=== PATIENT | male | born 1970 | race Asian ===

== ENCOUNTER 2018-03-09 10:16 | Inpatient (IN) | payer OTHER ==
[~2018-03-09] VITALS: Ht 167.6 cm; Wt 110.5 kg
[2018-03-09] MEDS ORDERED: SODIUM CHLORIDE 0.9% 1,000 ML IV ONE (12:00)
[2018-03-09] MEDS ORDERED: VANCOMYCIN HCL 1.5 GM in DEXTROSE 5%-WATER 250 ML IV ONE (12:00)
[2018-03-09 12:23] LABS: BASOPHILS % (AUTO) 0.7 % (0.0-2.0); EOSINOPHILS % (AUTO) 0.9 % (1.0-6.0); HEMATOCRIT 47.7 % (41-53); HEMOGLOBIN 16.2 g/dL (13.5-17.5); LYMPHOCYTES # (AUTO) 1.2 K/uL (1.0-4.8); LYMPHOCYTES % (AUTO) 7.5 % (22.0-44.0); MEAN CORPUSCULAR VOLUME 85 fL (80-100); MONOCYTES # (AUTO) 1.2 K/uL (0.1-1.0); MONOCYTES % (AUTO) 7.4 % (2.0-9.0); NEUTROPHILS # (AUTO) 13.7 K/uL (1.8-7.7); NEUTROPHILS % (AUTO) 83.5 % (40.0-70.0); PLATELET COUNT (AUTO) 266 K/uL (150-450); RED CELL DISTRIBUTION WIDTH 13.5 % (11.5-14.5)
[2018-03-09] MEDS ORDERED: ACETAMINOPHEN 325 MG TABLET PO ONE (12:30)
[2018-03-09] MEDS: PIPERACILLIN/TAZO 3.375 GM/D5W 50 ML IV SCH ×2 (12:31→17:57)
[2018-03-09 12:32] LABS: INR 1.1 (0.9-1.1)
[2018-03-09 12:33] LABS: ANION GAP 10 mmol/L (8-16); CALCIUM, TOTAL 8.7 mg/dL (8.8-10.5); CARBON DIOXIDE 27 mmol/L (22-29); CHLORIDE 99 mmol/L (98-107); CREATININE 1.02 mg/dL (0.60-1.30); GLOMERULAR FILTR. RATE CALC > 60 mL/min (>60); GLUCOSE,RANDOM 166 mg/dL (70-110); POTASSIUM 3.8 mmol/L (3.5-5.1); SODIUM SERUM 136 mmol/L (136-145); UREA NITROGEN, BLOOD 13 mg/dL (7-18)
[2018-03-09 12:39] LABS: ALANINE AMINOTRANSFERASE 37 U/L (12-78); ALBUMIN 3.1 g/dL (3.4-5.0); ALKALINE PHOSPHATASE 81 U/L (46-116); ASPARTATE AMINOTRANSFERASE 24 U/L (15-37); BILIRUBIN,TOTAL 0.9 mg/dL (0.1-1.0); LIPASE 81 U/L (73-393); TOTAL PROTEIN, SERUM 8.2 g/dL (6.4-8.2)
[2018-03-09 12:41] LABS: LACTIC ACID 1.3 mmol/L (0.4-2.0)
[2018-03-09] MEDS ORDERED: IOVERSOL 350 MG/ML 150 ML VIAL ONE (13:39)
[2018-03-09] MEDS ORDERED: KETOROLAC TROMETHAMINE 30 MG/ML VIAL IVP ONE (16:15)
[2018-03-09 16:23] LABS: APPEARANCE,URINE CLEAR (CLEAR); BILIRUBIN,URINE NEGATIVE (NEGATIVE); GLUCOSE, URINE (UA) NEGATIVE (NEGATIVE); KETONES,URINE NEGATIVE (NEGATIVE); LEUKOCYTE ESTERASE ,URINE NEGATIVE (NEGATIVE); NITRATE,URINE NEGATIVE (NEGATIVE); OCCULT BLOOD,URINE NEGATIVE (NEGATIVE); PROTEIN,URINE NEGATIVE (NEGATIVE)
[2018-03-09 16:25] LABS: BACTERIA,URINE None Seen /HPF (None Seen)
[2018-03-09 16:34] LABS: RBC,URINE None Seen /HPF (0-2); SQUAMOUS EPITHELIAL CELL,UR Rare /LPF (None Seen); WBC,URINE None Seen /HPF (0-5)
[2018-03-09] MEDS ORDERED: 0.9% SODIUM CHLORIDE 10 ML SYRINGE IVP PRN (17:15)
[2018-03-09] MEDS ORDERED: ONDANSETRON HCL 4 MG/2 ML VIAL IVP PRN ×2 (17:15→22:15)
[2018-03-09] MEDS ORDERED: ACETAMINOPHEN 325 MG TABLET PO PRN (17:15)
[2018-03-09] MEDS ORDERED: VANCOMYCIN HCL 1.5 GM in DEXTROSE 5%-WATER 250 ML IV SCH (18:00)
[2018-03-09 18:54] VITALS: BP 154/103
[2018-03-09 20:12] VITALS: BP 147/94
[2018-03-09] MEDS ORDERED: ZOLPIDEM TARTRATE 5 MG TABLET PO PRN (22:15)
[2018-03-09] MEDS ORDERED: BISACODYL 10 MG RECTAL RECTAL SUPPOSITORY PR PRN (22:15)
[2018-03-09] MEDS ORDERED: MAGNESIUM HYDROXIDE SUSPENSION 30 ML UDCUP PO PRN (22:15)
[2018-03-09 23:30] VITALS: BP 174/95
[2018-03-09] MEDS ORDERED: SODIUM CHLORIDE 0.9% 250 ML IV ONE (23:42)
[2018-03-10] MEDS ORDERED: PIPERACILLIN/TAZO 3.375 GM/D5W 50 ML IV SCH
[2018-03-10] MEDS: VANCOMYCIN HCL 1.25 GM in DEXTROSE 5%-WATER 250 ML IV SCH ×4 (00:19→23:31)
[2018-03-10] MEDS: HEPARIN SODIUM,PORCINE 5,000 UNITS/ML VIAL SQ SCH ×4 (00:22→23:31)
[2018-03-10 03:45] VITALS: BP 157/98
[2018-03-10 05:55] LABS: BASOPHILS % (AUTO) 0.6 % (0.0-2.0); EOSINOPHILS % (AUTO) 2.7 % (1.0-6.0); HEMATOCRIT 42.1 % (41-53); HEMOGLOBIN 14.4 g/dL (13.5-17.5); LYMPHOCYTES % (AUTO) 7.2 % (22.0-44.0); MEAN CORPUSCULAR HEMOGLOBIN 29.3 pg (26.0-34.0); MEAN CORPUSCULAR HGB CONC 34.3 G/dL (31.0-37.0); MEAN CORPUSCULAR VOLUME 85 fL (80-100); MONOCYTES # (AUTO) 1.4 K/uL (0.1-1.0); MONOCYTES % (AUTO) 9.5 % (2.0-9.0); NEUTROPHILS # (AUTO) 11.5 K/uL (1.8-7.7); PLATELET COUNT (AUTO) 226 K/uL (150-450); RED BLOOD CELL COUNT(AUTO) 4.93 MIL/uL (4.50-5.90); RED CELL DISTRIBUTION WIDTH 13.4 % (11.5-14.5)
[2018-03-10 06:21] LABS: ANION GAP 6 mmol/L (8-16); CALCIUM, TOTAL 8.4 mg/dL (8.8-10.5); CARBON DIOXIDE 29 mmol/L (22-29); CHLORIDE 102 mmol/L (98-107); CREATININE 0.96 mg/dL (0.60-1.30); GLOMERULAR FILTR. RATE CALC > 60 mL/min (>60); GLUCOSE,RANDOM 119 mg/dL (70-110); POTASSIUM 3.9 mmol/L (3.5-5.1); SODIUM SERUM 137 mmol/L (136-145); UREA NITROGEN, BLOOD 12 mg/dL (7-18)
[2018-03-10 07:48] VITALS: BP 162/102
[2018-03-10] MEDS: PANTOPRAZOLE SODIUM 40 MG DR TABLET PO SCH (07:54)
[2018-03-10] MEDS: DOCUSATE SODIUM 100 MG CAPSULE PO SCH ×2 (07:54→19:58)
[2018-03-10 11:50] VITALS: BP 140/114
[2018-03-10] MEDS: HYDROCODONE/ACETAMINOPHEN 5-325 MG TABLET PO PRN ×3 (11:54→23:31)
[2018-03-10 15:54] VITALS: BP 149/111
[2018-03-10 19:29] VITALS: BP 157/99
[2018-03-10 23:48] VITALS: BP 179/119
[2018-03-11] VITALS (7 sets, daily range): BP systolic 158–189; BP diastolic 106–120
[2018-03-11] MEDS: HydrALAZINE HCL 50 MG TABLET PO PRN ×5 (00:24→23:44)
[2018-03-11] MEDS: HYDROCODONE/ACETAMINOPHEN 5-325 MG TABLET PO PRN ×4 (05:32→20:21)
[2018-03-11 06:51] LABS: BASOPHILS % (AUTO) 0.6 % (0.0-2.0); EOSINOPHILS % (AUTO) 2.8 % (1.0-6.0); HEMATOCRIT 42.5 % (41-53); HEMOGLOBIN 14.8 g/dL (13.5-17.5); LYMPHOCYTES # (AUTO) 1.4 K/uL (1.0-4.8); LYMPHOCYTES % (AUTO) 10.9 % (22.0-44.0); MEAN CORPUSCULAR HEMOGLOBIN 29.7 pg (26.0-34.0); MEAN CORPUSCULAR VOLUME 85 fL (80-100); MONOCYTES # (AUTO) 1.4 K/uL (0.1-1.0); MONOCYTES % (AUTO) 10.9 % (2.0-9.0); NEUTROPHILS # (AUTO) 9.5 K/uL (1.8-7.7); NEUTROPHILS % (AUTO) 74.8 % (40.0-70.0); PLATELET COUNT (AUTO) 215 K/uL (150-450); RED BLOOD CELL COUNT(AUTO) 4.99 MIL/uL (4.50-5.90); RED CELL DISTRIBUTION WIDTH 13.4 % (11.5-14.5)
[2018-03-11 07:33] LABS: ANION GAP 6 mmol/L (8-16); CALCIUM, TOTAL 8.1 mg/dL (8.8-10.5); CARBON DIOXIDE 30 mmol/L (22-29); CHLORIDE 101 mmol/L (98-107); CREATININE 0.99 mg/dL (0.60-1.30); GLOMERULAR FILTR. RATE CALC > 60 mL/min (>60); GLUCOSE,RANDOM 96 mg/dL (70-110); POTASSIUM 4.1 mmol/L (3.5-5.1); SODIUM SERUM 137 mmol/L (136-145); UREA NITROGEN, BLOOD 13 mg/dL (7-18); VANCOMYCIN,RANDOM 27.2 mcg/mL (25.0-50.0)
[2018-03-11] MEDS: HEPARIN SODIUM,PORCINE 5,000 UNITS/ML VIAL SQ SCH ×3 (07:51→23:47)
[2018-03-11] MEDS: VANCOMYCIN HCL 1.25 GM in DEXTROSE 5%-WATER 250 ML IV SCH ×3 (07:51→23:45)
[2018-03-11] MEDS: MULTIVITAMINS, THERAPEUTIC TABLET PO SCH (07:52)
[2018-03-11] MEDS: PANTOPRAZOLE SODIUM 40 MG DR TABLET PO SCH (07:52)
[2018-03-11] MEDS: DOCUSATE SODIUM 100 MG CAPSULE PO SCH ×2 (07:52→20:21)
[2018-03-11] MEDS: MORPHINE SULFATE 4 MG/ML SYRINGE IVP PRN ×4 (07:56→23:44)
[2018-03-11] MEDS: AmLODIPine BESYLATE 10 MG TABLET PO SCH (17:06)
[2018-03-12] MEDS ORDERED: CloNIDine HCL 0.1 MG TABLET PO ONE
[2018-03-12 00:45] VITALS: BP 178/114
[2018-03-12 04:15] VITALS: BP 162/105
[2018-03-12] MEDS: HYDROCODONE/ACETAMINOPHEN 5-325 MG TABLET PO PRN (04:38)
[2018-03-12] MEDS: HydrALAZINE HCL 50 MG TABLET PO PRN ×3 (04:38→23:24)
[2018-03-12] MEDS ORDERED: SODIUM CHLORIDE 0.9% 250 ML IV ONE (05:08)
[2018-03-12 07:39] VITALS: BP 159/94
[2018-03-12 07:55] LABS: BASOPHILS % (AUTO) 0.7 % (0.0-2.0); HEMATOCRIT 43.7 % (41-53); HEMOGLOBIN 15.1 g/dL (13.5-17.5); LYMPHOCYTES # (AUTO) 1.1 K/uL (1.0-4.8); LYMPHOCYTES % (AUTO) 8.3 % (22.0-44.0); MEAN CORPUSCULAR HEMOGLOBIN 29.9 pg (26.0-34.0); MEAN CORPUSCULAR HGB CONC 34.6 G/dL (31.0-37.0); MEAN CORPUSCULAR VOLUME 86 fL (80-100); MONOCYTES # (AUTO) 1.8 K/uL (0.1-1.0); MONOCYTES % (AUTO) 13.7 % (2.0-9.0); NEUTROPHILS # (AUTO) 9.7 K/uL (1.8-7.7); NEUTROPHILS % (AUTO) 73.3 % (40.0-70.0); PLATELET COUNT (AUTO) 252 K/uL (150-450); RED BLOOD CELL COUNT(AUTO) 5.06 MIL/uL (4.50-5.90); RED CELL DISTRIBUTION WIDTH 13.6 % (11.5-14.5)
[2018-03-12] MEDS: AmLODIPine BESYLATE 10 MG TABLET PO SCH (07:57)
[2018-03-12] MEDS: CHLORHEXIDINE GLUCONATE 4% 118 ML TOPICAL LIQUID TP SCH (07:57)
[2018-03-12] MEDS: MULTIVITAMINS, THERAPEUTIC TABLET PO SCH (07:57)
[2018-03-12] MEDS: DOCUSATE SODIUM 100 MG CAPSULE PO SCH ×2 (07:57→20:09)
[2018-03-12] MEDS: VANCOMYCIN HCL 1.25 GM in DEXTROSE 5%-WATER 250 ML IV SCH (07:57)
[2018-03-12] MEDS: PANTOPRAZOLE SODIUM 40 MG DR TABLET PO SCH (07:57)
[2018-03-12] MEDS: HEPARIN SODIUM,PORCINE 5,000 UNITS/ML VIAL SQ SCH ×3 (07:58→23:25)
[2018-03-12 08:02] LABS: ANION GAP 7 mmol/L (8-16); CALCIUM, TOTAL 8.4 mg/dL (8.8-10.5); CARBON DIOXIDE 30 mmol/L (22-29); CHLORIDE 101 mmol/L (98-107); CREATININE 0.94 mg/dL (0.60-1.30); GLOMERULAR FILTR. RATE CALC > 60 mL/min (>60); GLUCOSE,RANDOM 131 mg/dL (70-110); POTASSIUM 3.5 mmol/L (3.5-5.1); SODIUM SERUM 138 mmol/L (136-145); UREA NITROGEN, BLOOD 13 mg/dL (7-18)
[2018-03-12] MEDS ORDERED: POTASSIUM CHLORIDE 20 MEQ ER TABLET PO ONE (08:30)
[2018-03-12 11:31] VITALS: BP 158/81
[2018-03-12] MEDS: MORPHINE SULFATE 4 MG/ML SYRINGE IVP PRN (14:43)
[2018-03-12 15:24] VITALS: BP 154/103
[2018-03-12 22:43] VITALS: BP 158/96
[2018-03-12] MEDS: VANCOMYCIN HCL 1 GM/D5% WATER 200 ML IV SCH (23:24)
[2018-03-13 04:37] VITALS: BP 158/106
[2018-03-13] MEDS: CloNIDine HCL 0.1 MG TABLET PO PRN (05:30)
[2018-03-13] MEDS: HYDROCODONE/ACETAMINOPHEN 5-325 MG TABLET PO PRN (05:33)
[2018-03-13 06:35] LABS: BASOPHILS % (AUTO) 0.8 % (0.0-2.0); EOSINOPHILS % (AUTO) 4.1 % (1.0-6.0); HEMATOCRIT 43.5 % (41-53); HEMOGLOBIN 15.4 g/dL (13.5-17.5); LYMPHOCYTES # (AUTO) 1.2 K/uL (1.0-4.8); LYMPHOCYTES % (AUTO) 10.6 % (22.0-44.0); MEAN CORPUSCULAR HEMOGLOBIN 30.3 pg (26.0-34.0); MEAN CORPUSCULAR HGB CONC 35.4 G/dL (31.0-37.0); MEAN CORPUSCULAR VOLUME 86 fL (80-100); MONOCYTES # (AUTO) 1.3 K/uL (0.1-1.0); MONOCYTES % (AUTO) 12.2 % (2.0-9.0); NEUTROPHILS # (AUTO) 7.9 K/uL (1.8-7.7); NEUTROPHILS % (AUTO) 72.3 % (40.0-70.0); PLATELET COUNT (AUTO) 284 K/uL (150-450); RED BLOOD CELL COUNT(AUTO) 5.08 MIL/uL (4.50-5.90); RED CELL DISTRIBUTION WIDTH 13.7 % (11.5-14.5)
[2018-03-13 06:41] LABS: ANION GAP 6 mmol/L (8-16); CALCIUM, TOTAL 8.6 mg/dL (8.8-10.5); CARBON DIOXIDE 31 mmol/L (22-29); CHLORIDE 100 mmol/L (98-107); CREATININE 0.95 mg/dL (0.60-1.30); GLOMERULAR FILTR. RATE CALC > 60 mL/min (>60); GLUCOSE,RANDOM 104 mg/dL (70-110); POTASSIUM 3.8 mmol/L (3.5-5.1); SODIUM SERUM 137 mmol/L (136-145); UREA NITROGEN, BLOOD 12 mg/dL (7-18)
[2018-03-13 07:20] VITALS: BP 153/103
[2018-03-13] MEDS: HEPARIN SODIUM,PORCINE 5,000 UNITS/ML VIAL SQ SCH ×3 (08:00→23:32)
[2018-03-13] MEDS ORDERED: RINGERS SOLUTION,LACTATED 1,000 ML IV ONE (08:45)
[2018-03-13] MEDS: AmLODIPine BESYLATE 10 MG TABLET PO SCH (08:49)
[2018-03-13] MEDS: CHLORHEXIDINE GLUCONATE 4% 118 ML TOPICAL LIQUID TP SCH (09:00)
[2018-03-13] MEDS ORDERED: ACETAMINOPHEN 1000 MG/ISO-OSM 100 ML IV ONE (09:28)
[2018-03-13] MEDS ORDERED: SODIUM CL IRRIG SOLN BAG 3,000 ML IRRIG ONE (09:38)
[2018-03-13] MEDS ORDERED: DEXAMETHASONE SOD PHOS 4 MG/ML VIAL ONE (09:41)
[2018-03-13] MEDS ORDERED: LIDOCAINE/PF 2% 5 ML VIAL ONE (09:41)
[2018-03-13] MEDS ORDERED: MEPERIDINE-PF 25 MG/ML VIAL IVP PRN (10:15)
[2018-03-13] MEDS ORDERED: FentaNYL CITRATE-PF 100 MCG/2 ML VIAL IVP PRN (10:15)
[2018-03-13] MEDS ORDERED: HYDROmorphone 2 MG/ML SYRINGE IVP PRN ×2 (10:15)
[2018-03-13] MEDS ORDERED: KETAMINE HCL 50 MG/ML 10 ML VIAL ONE (10:19)
[2018-03-13 11:00] VITALS: BP 141/90
[2018-03-13] MEDS: DOCUSATE SODIUM 100 MG CAPSULE PO SCH ×2 (11:40→20:28)
[2018-03-13] MEDS: MULTIVITAMINS, THERAPEUTIC TABLET PO SCH (11:40)
[2018-03-13] MEDS: VANCOMYCIN HCL 1 GM/D5% WATER 200 ML IV SCH ×3 (11:41→23:32)
[2018-03-13] MEDS ORDERED: ONDANSETRON HCL 4 MG/2 ML VIAL IVP ONE (12:00)
[2018-03-13] MEDS ORDERED: LIDOCAINE/PF 2% 5 ML VIAL INJ ONE (12:00)
[2018-03-13] MEDS ORDERED: KETOROLAC TROMETHAMINE 60 MG/2 ML VIAL IM ONE (12:00)
[2018-03-13] MEDS ORDERED: PROPOFOL 1% 20 ML VIAL IVP ONE (12:00)
[2018-03-13] MEDS ORDERED: MIDAZOLAM HCL 2 MG/2 ML VIAL IVP ONE (12:00)
[2018-03-13] MEDS: PANTOPRAZOLE SODIUM 40 MG DR TABLET PO SCH (12:06)
[2018-03-13] MEDS ORDERED: SODIUM CHLORIDE 0.9% 500 ML IV ONE (14:26)
[2018-03-13 15:30] VITALS: BP 129/81
[2018-03-13] MEDS: KETOROLAC TROMETHAMINE 15 MG/ML VIAL IVP SCH ×2 (17:30→23:32)
[2018-03-13] MEDS: ACETAMINOPHEN 500 MG TABLET PO SCH ×2 (17:32→23:32)
[2018-03-13 20:18] VITALS: BP 144/92
[2018-03-14] VITALS (7 sets, daily range): BP systolic 134–155; BP diastolic 73–107
[2018-03-14] MEDS: KETOROLAC TROMETHAMINE 15 MG/ML VIAL IVP SCH ×4 (05:44→23:37)
[2018-03-14] MEDS: ACETAMINOPHEN 500 MG TABLET PO SCH ×4 (05:45→23:37)
[2018-03-14 06:46] LABS: BASOPHILS % (AUTO) 0.3 % (0.0-2.0); EOSINOPHILS % (AUTO) 0 % (1.0-6.0); HEMATOCRIT 41.7 % (41-53); HEMOGLOBIN 14.3 g/dL (13.5-17.5); LYMPHOCYTES # (AUTO) 0.8 K/uL (1.0-4.8); LYMPHOCYTES % (AUTO) 5.5 % (22.0-44.0); MEAN CORPUSCULAR HEMOGLOBIN 29.3 pg (26.0-34.0); MEAN CORPUSCULAR HGB CONC 34.2 G/dL (31.0-37.0); MEAN CORPUSCULAR VOLUME 86 fL (80-100); MONOCYTES # (AUTO) 0.9 K/uL (0.1-1.0); MONOCYTES % (AUTO) 5.9 % (2.0-9.0); NEUTROPHILS # (AUTO) 12.9 K/uL (1.8-7.7); PLATELET COUNT (AUTO) 320 K/uL (150-450); RED BLOOD CELL COUNT(AUTO) 4.86 MIL/uL (4.50-5.90); RED CELL DISTRIBUTION WIDTH 13.3 % (11.5-14.5)
[2018-03-14 06:56] LABS: NEUTROPHILS % (AUTO) 88.3 % (40.0-70.0)
[2018-03-14 07:01] LABS: ANION GAP 8 mmol/L (8-16); CALCIUM, TOTAL 8.4 mg/dL (8.8-10.5); CARBON DIOXIDE 27 mmol/L (22-29); CHLORIDE 101 mmol/L (98-107); CREATININE 1.07 mg/dL (0.60-1.30); GLOMERULAR FILTR. RATE CALC > 60 mL/min (>60); GLUCOSE,RANDOM 124 mg/dL (70-110); POTASSIUM 4.4 mmol/L (3.5-5.1); SODIUM SERUM 136 mmol/L (136-145); UREA NITROGEN, BLOOD 21 mg/dL (7-18); VANCOMYCIN,RANDOM 22.9 mcg/mL (25.0-50.0)
[2018-03-14] MEDS: HEPARIN SODIUM,PORCINE 5,000 UNITS/ML VIAL SQ SCH ×3 (08:34→23:37)
[2018-03-14] MEDS: VANCOMYCIN HCL 1 GM/D5% WATER 200 ML IV SCH ×3 (08:34→23:37)
[2018-03-14] MEDS: MULTIVITAMINS, THERAPEUTIC TABLET PO SCH (08:34)
[2018-03-14] MEDS: AmLODIPine BESYLATE 10 MG TABLET PO SCH (08:35)
[2018-03-14] MEDS: PANTOPRAZOLE SODIUM 40 MG DR TABLET PO SCH (08:35)
[2018-03-14] MEDS: DOCUSATE SODIUM 100 MG CAPSULE PO SCH ×2 (08:35→20:40)
[2018-03-14] MEDS: CHLORHEXIDINE GLUCONATE 4% 118 ML TOPICAL LIQUID TP SCH (08:35)
[2018-03-14] MEDS ORDERED: SODIUM CHLORIDE 0.9% 500 ML IV ONE (13:37)
[2018-03-14] MEDS: CloNIDine HCL 0.1 MG TABLET PO PRN (20:40)
[2018-03-15 04:00] VITALS: BP 155/96
[2018-03-15] MEDS: KETOROLAC TROMETHAMINE 15 MG/ML VIAL IVP SCH ×3 (05:27→18:50)
[2018-03-15 06:08] LABS: BASOPHILS % (AUTO) 1.2 % (0.0-2.0); EOSINOPHILS % (AUTO) 2.4 % (1.0-6.0); HEMATOCRIT 42.7 % (41-53); HEMOGLOBIN 14.1 g/dL (13.5-17.5); LYMPHOCYTES # (AUTO) 1.8 K/uL (1.0-4.8); LYMPHOCYTES % (AUTO) 16.2 % (22.0-44.0); MEAN CORPUSCULAR HEMOGLOBIN 28.6 pg (26.0-34.0); MEAN CORPUSCULAR HGB CONC 33.1 G/dL (31.0-37.0); MEAN CORPUSCULAR VOLUME 86 fL (80-100); MONOCYTES # (AUTO) 1.1 K/uL (0.1-1.0); NEUTROPHILS # (AUTO) 7.9 K/uL (1.8-7.7); NEUTROPHILS % (AUTO) 70.2 % (40.0-70.0); PLATELET COUNT (AUTO) 337 K/uL (150-450); RED BLOOD CELL COUNT(AUTO) 4.94 MIL/uL (4.50-5.90); RED CELL DISTRIBUTION WIDTH 13.7 % (11.5-14.5)
[2018-03-15] MEDS: ACETAMINOPHEN 500 MG TABLET PO SCH ×3 (06:21→18:51)
[2018-03-15 06:30] LABS: ANION GAP 6 mmol/L (8-16); CALCIUM, TOTAL 8.1 mg/dL (8.8-10.5); CARBON DIOXIDE 29 mmol/L (22-29); CHLORIDE 103 mmol/L (98-107); CREATININE 0.95 mg/dL (0.60-1.30); GLOMERULAR FILTR. RATE CALC > 60 mL/min (>60); GLUCOSE,RANDOM 105 mg/dL (70-110); POTASSIUM 4.1 mmol/L (3.5-5.1); SODIUM SERUM 138 mmol/L (136-145); UREA NITROGEN, BLOOD 19 mg/dL (7-18); VANCOMYCIN,RANDOM 22.7 mcg/mL (25.0-50.0)
[2018-03-15 07:25] VITALS: BP 151/102
[2018-03-15] MEDS: VANCOMYCIN HCL 1 GM/D5% WATER 200 ML IV SCH ×2 (07:56→17:21)
[2018-03-15] MEDS: AmLODIPine BESYLATE 10 MG TABLET PO SCH (07:56)
[2018-03-15] MEDS: PANTOPRAZOLE SODIUM 40 MG DR TABLET PO SCH (07:56)
[2018-03-15] MEDS: DOCUSATE SODIUM 100 MG CAPSULE PO SCH ×2 (07:56→21:00)
[2018-03-15] MEDS: MULTIVITAMINS, THERAPEUTIC TABLET PO SCH (07:56)
[2018-03-15] MEDS: HEPARIN SODIUM,PORCINE 5,000 UNITS/ML VIAL SQ SCH ×2 (07:56→17:20)
[2018-03-15] MEDS: CHLORHEXIDINE GLUCONATE 4% 118 ML TOPICAL LIQUID TP SCH (09:00)
[2018-03-15] MEDS: ACETAMINOPHEN 325 MG TABLET PO PRN ×2 (12:41→12:44)
[2018-03-15 13:49] VITALS: BP 153/83
[2018-03-15 15:20] VITALS: BP 151/99
[2018-03-15 20:01] VITALS: BP 148/95
[2018-03-16] VITALS (8 sets, daily range): BP systolic 144–164; BP diastolic 87–110
[2018-03-16] MEDS: VANCOMYCIN HCL 1 GM/D5% WATER 200 ML IV SCH ×4 (00:40→23:37)
[2018-03-16] MEDS: KETOROLAC TROMETHAMINE 15 MG/ML VIAL IVP SCH ×2 (00:41→05:27)
[2018-03-16] MEDS: HEPARIN SODIUM,PORCINE 5,000 UNITS/ML VIAL SQ SCH ×4 (00:42→23:38)
[2018-03-16] MEDS: ACETAMINOPHEN 500 MG TABLET PO SCH ×2 (00:42→06:23)
[2018-03-16 06:20] LABS: ANION GAP 8 mmol/L (8-16); CALCIUM, TOTAL 8.5 mg/dL (8.8-10.5); CARBON DIOXIDE 29 mmol/L (22-29); CHLORIDE 102 mmol/L (98-107); CREATININE 0.91 mg/dL (0.60-1.30); GLOMERULAR FILTR. RATE CALC > 60 mL/min (>60); GLUCOSE,RANDOM 99 mg/dL (70-110); POTASSIUM 3.9 mmol/L (3.5-5.1); SODIUM SERUM 139 mmol/L (136-145); UREA NITROGEN, BLOOD 18 mg/dL (7-18)
[2018-03-16] MEDS: HydrALAZINE HCL 50 MG TABLET PO PRN ×2 (06:22→18:19)
[2018-03-16] MEDS: MULTIVITAMINS, THERAPEUTIC TABLET PO SCH (07:54)
[2018-03-16] MEDS: PANTOPRAZOLE SODIUM 40 MG DR TABLET PO SCH (07:54)
[2018-03-16] MEDS: AmLODIPine BESYLATE 10 MG TABLET PO SCH (07:54)
[2018-03-16] MEDS: DOCUSATE SODIUM 100 MG CAPSULE PO SCH ×2 (07:58→20:04)
[2018-03-16] MEDS: CHLORHEXIDINE GLUCONATE 4% 118 ML TOPICAL LIQUID TP SCH (08:02)
[2018-03-16] MEDS: CloNIDine HCL 0.1 MG TABLET PO PRN (11:53)
[2018-03-16] MEDS: HYDROmorphone 2 MG/ML SYRINGE IVP PRN (18:21)
[2018-03-17] MEDS: OxyCODONE HCL/ACETAMINOPHEN 10-325 MG TABLET PO PRN ×3 (06:13→19:59)
[2018-03-17] MEDS: VANCOMYCIN HCL 1 GM/D5% WATER 200 ML IV SCH ×2 (07:54→16:09)
[2018-03-17] MEDS: PANTOPRAZOLE SODIUM 40 MG DR TABLET PO SCH (07:55)
[2018-03-17] MEDS: DOCUSATE SODIUM 100 MG CAPSULE PO SCH ×2 (07:55→19:58)
[2018-03-17] MEDS: HEPARIN SODIUM,PORCINE 5,000 UNITS/ML VIAL SQ SCH ×2 (07:55→16:08)
[2018-03-17] MEDS: AmLODIPine BESYLATE 10 MG TABLET PO SCH (07:55)
[2018-03-17] MEDS: MULTIVITAMINS, THERAPEUTIC TABLET PO SCH (07:55)
[2018-03-17 08:03] VITALS: BP 146/97
[2018-03-17 08:48] LABS: ANION GAP 6 mmol/L (8-16); CALCIUM, TOTAL 8.4 mg/dL (8.8-10.5); CARBON DIOXIDE 29 mmol/L (22-29); CHLORIDE 101 mmol/L (98-107); CREATININE 1.02 mg/dL (0.60-1.30); GLOMERULAR FILTR. RATE CALC > 60 mL/min (>60); GLUCOSE,RANDOM 191 mg/dL (70-110); SODIUM SERUM 136 mmol/L (136-145); UREA NITROGEN, BLOOD 19 mg/dL (7-18)
[2018-03-17] MEDS: CHLORHEXIDINE GLUCONATE 4% 118 ML TOPICAL LIQUID TP SCH (09:00)
[2018-03-17 12:00] VITALS: BP 142/90
[2018-03-17] MEDS: HYDROmorphone 2 MG/ML SYRINGE IVP PRN (14:19)
[2018-03-17] MEDS ORDERED: AMLO-512 PO (14:33)
[2018-03-17] MEDS ORDERED: SULF1TAB42 PO (14:33)
[2018-03-17 16:20] VITALS: BP 145/95
[2018-03-17 19:19] VITALS: BP_SYST 120; BP_SYST 134; BP_DIAS 76; BP_DIAS 93
[2018-03-17 23:30] VITALS: BP 141/89
[2018-03-18] MEDS: HEPARIN SODIUM,PORCINE 5,000 UNITS/ML VIAL SQ SCH ×3 (00:31→16:48)
[2018-03-18] MEDS: VANCOMYCIN HCL 1 GM/D5% WATER 200 ML IV SCH ×3 (00:31→16:48)
[2018-03-18 05:06] VITALS: BP 155/96
[2018-03-18 06:30] LABS: ANION GAP 7 mmol/L (8-16); CALCIUM, TOTAL 8.3 mg/dL (8.8-10.5); CARBON DIOXIDE 29 mmol/L (22-29); CHLORIDE 101 mmol/L (98-107); CREATININE 0.83 mg/dL (0.60-1.30); GLOMERULAR FILTR. RATE CALC > 60 mL/min (>60); GLUCOSE,RANDOM 97 mg/dL (70-110); POTASSIUM 3.8 mmol/L (3.5-5.1); SODIUM SERUM 137 mmol/L (136-145); UREA NITROGEN, BLOOD 18 mg/dL (7-18); VANCOMYCIN,RANDOM 31.4 mcg/mL (25.0-50.0)
[2018-03-18 07:36] VITALS: BP 155/107
[2018-03-18] MEDS: MULTIVITAMINS, THERAPEUTIC TABLET PO SCH (08:48)
[2018-03-18] MEDS: DOCUSATE SODIUM 100 MG CAPSULE PO SCH (08:48)
[2018-03-18] MEDS: AmLODIPine BESYLATE 10 MG TABLET PO SCH (08:48)
[2018-03-18] MEDS: PANTOPRAZOLE SODIUM 40 MG DR TABLET PO SCH (08:48)
[2018-03-18] MEDS: OxyCODONE HCL/ACETAMINOPHEN 10-325 MG TABLET PO PRN (08:57)
[2018-03-18] MEDS: CHLORHEXIDINE GLUCONATE 4% 118 ML TOPICAL LIQUID TP SCH (09:00)
[2018-03-18 11:15] VITALS: BP 148/87
[2018-03-18] MEDS ORDERED: SODIUM CHLORIDE 0.9% 250 ML IV ONE (12:25)
[2018-03-18 15:30] VITALS: BP 146/94
== END 2018-03-18 20:05 | disposition home or self-care (01) | DRG 720 ==
LOC: EMS 10:18 → 6N 17:29
PROVIDERS: ADMIT Internal Medicine; ATTEND Internal Medicine
PROC: 0JB80ZZ Excision of Abdomen Subcutaneous Tissue and Fascia, Open Approach (ICD-10-PCS; principal; 2018-03-13 09:00)
DX: A41.9 Sepsis, unspecified organism (principal); I96 Gangrene, not elsewhere classified; I31.3 Pericardial effusion (noninflammatory); E44.0 Moderate protein-calorie malnutrition; L02.211 Cutaneous abscess of abdominal wall; E66.01 Morbid (severe) obesity due to excess calories; K76.0 Fatty (change of) liver, not elsewhere classified; L03.311 Cellulitis of abdominal wall; F17.200 Nicotine dependence, unspecified, uncomplicated; I10 Essential (primary) hypertension; Z68.39 Body mass index [BMI] 39.0-39.9, adult; I25.10 Atherosclerotic heart disease of native coronary artery without angina pectoris; Z91.19 Patient's noncompliance with other medical treatment and regimen; T14.8XXA Other injury of unspecified body region, initial encounter; W57.XXXA Bitten or stung by nonvenomous insect and other nonvenomous arthropods, initial encounter; Y93.89 Activity, other specified; Y92.89 Other specified places as the place of occurrence of the external cause; Y99.8 Other external cause status; Z28.21 Immunization not carried out because of patient refusal
CPT/HCPCS: 74177; 83605; 87040; 87070; 87081; 88304; 96365; 96366; G0378; J0131; J0690; J1100; J1170; J1644; J1885; J2250; J2270; J2405; J2543; J2704; J3370; J3490; J7030; J7040; J7050; J7060; J7120

== ENCOUNTER → 2018-03-26 | Outpatient (CLI) | payer OTHER ==
[~2018-03-26] VITALS: Ht 170.2 cm; Wt 104.0 kg
[~2018-03-26] MED LIST: AMLO-512 PO; DIPH50 PO; LIDOCAINE 4% 50 ML SOLUTION TP ONE; SULF1TAB42 PO
[2018-03-26 10:06] VITALS: BP 149/84
== END | disposition home or self-care (01) ==
LOC: HBOWC 08:40
PROVIDERS: ATTEND Nurse Practitioner Adult Health
DX: T81.89XA Other complications of procedures, not elsewhere classified, initial encounter (principal); L98.492 Non-pressure chronic ulcer of skin of other sites with fat layer exposed; I10 Essential (primary) hypertension; I25.10 Atherosclerotic heart disease of native coronary artery without angina pectoris; K76.0 Fatty (change of) liver, not elsewhere classified; I96 Gangrene, not elsewhere classified; E66.01 Morbid (severe) obesity due to excess calories; F17.200 Nicotine dependence, unspecified, uncomplicated; Z68.39 Body mass index [BMI] 39.0-39.9, adult; Y83.8 Other surgical procedures as the cause of abnormal reaction of the patient, or of later complication, without mention of misadventure at the time of the procedure; Y92.89 Other specified places as the place of occurrence of the external cause
CPT/HCPCS: 97606; G0463

== ENCOUNTER → 2018-04-02 | Outpatient (CLI) | payer OTHER ==
[2018-04-02 10:10] VITALS: BP 180/90
== END | disposition home or self-care (01) ==
LOC: HBOWC 09:13
PROVIDERS: ATTEND Nurse Practitioner Adult Health
DX: T81.89XD Other complications of procedures, not elsewhere classified, subsequent encounter (principal); I10 Essential (primary) hypertension; I25.10 Atherosclerotic heart disease of native coronary artery without angina pectoris; K76.0 Fatty (change of) liver, not elsewhere classified; I96 Gangrene, not elsewhere classified; E66.01 Morbid (severe) obesity due to excess calories; F17.200 Nicotine dependence, unspecified, uncomplicated; Z68.39 Body mass index [BMI] 39.0-39.9, adult; Y83.8 Other surgical procedures as the cause of abnormal reaction of the patient, or of later complication, without mention of misadventure at the time of the procedure
CPT/HCPCS: 97605

== ENCOUNTER → 2018-04-16 | Outpatient (CLI) | payer OTHER ==
[2018-04-16 10:00] VITALS: BP 130/90
== END | disposition home or self-care (01) ==
LOC: HBOWC 09:24
PROVIDERS: ATTEND Nurse Practitioner Adult Health
DX: T81.89XD Other complications of procedures, not elsewhere classified, subsequent encounter (principal); I10 Essential (primary) hypertension; I25.10 Atherosclerotic heart disease of native coronary artery without angina pectoris; K76.0 Fatty (change of) liver, not elsewhere classified; I96 Gangrene, not elsewhere classified; E66.01 Morbid (severe) obesity due to excess calories; F17.200 Nicotine dependence, unspecified, uncomplicated; Z68.39 Body mass index [BMI] 39.0-39.9, adult; Y83.8 Other surgical procedures as the cause of abnormal reaction of the patient, or of later complication, without mention of misadventure at the time of the procedure

== ENCOUNTER → 2018-04-23 | Outpatient (CLI) | payer OTHER ==
[2018-04-23 09:00] VITALS: BP 154/90
== END | disposition home or self-care (01) ==
LOC: HBOWC 09:08
PROVIDERS: ATTEND Nurse Practitioner Adult Health
DX: T81.89XD Other complications of procedures, not elsewhere classified, subsequent encounter (principal); I25.10 Atherosclerotic heart disease of native coronary artery without angina pectoris; I10 Essential (primary) hypertension; K76.0 Fatty (change of) liver, not elsewhere classified; I96 Gangrene, not elsewhere classified; E66.01 Morbid (severe) obesity due to excess calories; F17.200 Nicotine dependence, unspecified, uncomplicated; Z68.39 Body mass index [BMI] 39.0-39.9, adult; Y83.8 Other surgical procedures as the cause of abnormal reaction of the patient, or of later complication, without mention of misadventure at the time of the procedure
CPT/HCPCS: 97605

== ENCOUNTER → 2018-04-30 | Outpatient (CLI) | payer OTHER ==
[~2018-04-30] MED LIST changes: -LIDOCAINE 4% 50 ML SOLUTION TP ONE
[2018-04-30 09:54] VITALS: BP 147/98
== END | disposition home or self-care (01) ==
LOC: HBOWC 09:02
PROVIDERS: ATTEND Nurse Practitioner Adult Health
DX: T81.89XD Other complications of procedures, not elsewhere classified, subsequent encounter (principal); I10 Essential (primary) hypertension; I25.10 Atherosclerotic heart disease of native coronary artery without angina pectoris; K76.0 Fatty (change of) liver, not elsewhere classified; E44.0 Moderate protein-calorie malnutrition; F17.200 Nicotine dependence, unspecified, uncomplicated; Z68.39 Body mass index [BMI] 39.0-39.9, adult; Y83.8 Other surgical procedures as the cause of abnormal reaction of the patient, or of later complication, without mention of misadventure at the time of the procedure

== ENCOUNTER → 2018-05-07 | Outpatient (CLI) | payer OTHER ==
[2018-05-07 10:29] VITALS: BP 129/90
== END | disposition home or self-care (01) ==
LOC: HBOWC 09:36
PROVIDERS: ATTEND Nurse Practitioner Adult Health
DX: T81.89XD Other complications of procedures, not elsewhere classified, subsequent encounter (principal); I96 Gangrene, not elsewhere classified; I10 Essential (primary) hypertension; I25.10 Atherosclerotic heart disease of native coronary artery without angina pectoris; K76.0 Fatty (change of) liver, not elsewhere classified; E44.0 Moderate protein-calorie malnutrition; F17.200 Nicotine dependence, unspecified, uncomplicated; E66.01 Morbid (severe) obesity due to excess calories; Z68.39 Body mass index [BMI] 39.0-39.9, adult; Y83.8 Other surgical procedures as the cause of abnormal reaction of the patient, or of later complication, without mention of misadventure at the time of the procedure

== ENCOUNTER → 2018-05-14 | Outpatient (CLI) | payer OTHER ==
[2018-05-14 10:44] VITALS: BP 160/90
== END | disposition home or self-care (01) ==
LOC: HBOWC 09:59
PROVIDERS: ATTEND Nurse Practitioner Adult Health
DX: T81.89XD Other complications of procedures, not elsewhere classified, subsequent encounter (principal); I96 Gangrene, not elsewhere classified; I10 Essential (primary) hypertension; I25.10 Atherosclerotic heart disease of native coronary artery without angina pectoris; K76.0 Fatty (change of) liver, not elsewhere classified; E44.0 Moderate protein-calorie malnutrition; E66.01 Morbid (severe) obesity due to excess calories; F17.200 Nicotine dependence, unspecified, uncomplicated; Z68.39 Body mass index [BMI] 39.0-39.9, adult; Y83.8 Other surgical procedures as the cause of abnormal reaction of the patient, or of later complication, without mention of misadventure at the time of the procedure